=== PATIENT | male | born 1940 | race Asian ===

== ENCOUNTER 2025-06-07 16:12 | Inpatient (IN) | payer OTHER, SELFPAY ==
[2025-06-07] VITALS (12 sets, daily range): BP systolic 117–167; BP diastolic 66–94; BMI 26.3
[2025-06-07 14:29] LABS: Hematocrit 40.9 % (39.0-52.0); Hemoglobin 13.7 g/dL (13.0-18.0); Mean Corp Hgb Conc. 33.5 g/dL (33.0-37.0); Mean Corpuscular Volume 88.9 fL (80.0-94.0); Nucleated Red Blood Cells % 0 % (-); Platelet Count 165 10^3/uL (130-400); Red Cell Dist. Width 12.3 % (11.5-14.5)
[2025-06-07 15:00] LABS: ALT (SGPT) 41 U/L (0-50); AST (SGOT) 60 U/L (17-59); Albumin 4.4 g/dl (3.5-5.0); Alkaline Phosphatase 35 U/L (38-126); Blood Urea Nitrogen 17 mg/dl (9-20); Calcium 9.6 mg/dl (8.4-10.2); Carbon Dioxide 26 mmol/L (22-30); Chloride 102 mmol/L (98-107); Glucose 184 mg/dl (70-99); Potassium 4.0 mmol/L (3.5-5.1); Sodium 137 mmol/L (135-145); Total Protein 7.3 g/dl (6.3-8.2); eGFR > 60.00
[2025-06-07 15:07] LABS: Troponin I 1.450 ng/ml
--- NOTE | 2025-06-07 15:22 | ED.GENMED ---
History of Present Illness
General
Chief Complaint: Chest Pain
Time Seen by Provider: 06/07/25 15:22
History of Present Illness
History of Present Illness:
TIME OF INITIAL EVALUATION
- 3:20 PM
REVIEW OF OLD RECORDS
- The patient has history of CAD and diabetes. The patient had colectomy in [address] Bliss.
Note:
CHIEF COMPLAINT(S)
Chest pain.
HISTORY OF PRESENT ILLNESS
The patient is an 85-year-old male presenting with chest discomfort. According to his son, the chest pain began approximately ten days ago, on a Tuesday. The patient visited the emergency department at [facility] two days after the onset of chest
pain, where blood work and an electrocardiogram (EKG) were performed and reported as normal. However, subsequent blood work today indicates a heart attack, as evidenced by significantly elevated cardiac markers, with levels reported to be 1.45. The
patient does not currently experience pain but reports discomfort. He has taken nitroglycerin tablets twice this morning, which did not provide relief from the discomfort. Although he appears comfortable he reports some minor discomfort in the
chest but describes it as 'not pain' and appears very comfortable currently.
ADDITIONAL HISTORY OBTAINED FROM SOURCES OTHER THAN THE PATIENT
Per the patients son, the patient has a history of coronary artery disease and has experienced a heart attack in the past. He sees a network consultant, Dr. Vences in [facility]. The patient resides in [facility] and was originally seen there. He is
scheduled for a cardiac catheterization with Dr. Conner in [place] the following Tuesday.
CHRONIC MEDICAL CONDITIONS SIGNIFICANTLY AFFECTING CARE
The patient has coronary artery disease with a history of a previous heart attack.
MEDICATIONS
The patient is currently taking aspirin, nitroglycerin (taken twice today), Tamsulosin, and Metformin.
PHYSICAL EXAM
General: Alert, no acute distress.
Skin: Warm, dry.
Head: Normocephalic, atraumatic.
Neck: Supple, trachea midline.
Eye, Ears, Nose, Mouth, and Throat: Oral mucosa moist.
Cardiovascular: Normal peripheral perfusion, no edema. No chest wall pain.
Respiratory: Respirations are non-labored.
Gastrointestinal: Abdomen nondistended.
Back: Normal range of motion, normal alignment.
Musculoskeletal: Normal range of motion, normal strength.
Neurological: Alert and oriented to person, place, time, and situation, no focal neurological deficit observed.
Psychiatric: Cooperative, appropriate mood & affect.
PROBLEM LIST
Acute: Chest discomfort likely due to unstable angina.
Chronic: Coronary artery disease.
PLAN
- Administer a full-strength aspirin.
- Initiate nitroglycerin drip and heparin drip.
- Consult with the network consultant for further management.
- The patient will remain in the emergency department for monitoring until evaluation by a network consultant.
DIFFERENTIAL DIAGNOSIS
The Differential Diagnosis includes, in no particular order and is not limited to:
1. Acute coronary syndrome.
2. Unstable angina.
3. Myocardial infarction.
4. Gastroesophageal reflux disease.
5. Aortic dissection.
6. Pulmonary embolism.
7. Pericarditis.
8. Costochondritis.
9. Pneumonia.
10. Anxiety-related disorder affecting cardiac symptoms.
EKG
- Sinus 77, left axis deviation, septal Q waves with minimal ST elevation there is some minimal ST depression in V5 V6
LABS
- White count 11.1, hemoglobin normal. Troponin 1.45 with no old to compare
UPDATE
-SUMMARY OF ENCOUNTER
The patient, an 85-year-old male with a history of coronary artery disease, presented with chest discomfort. Despite a previous normal EKG and blood work at a different facility, todays lab results indicated elevated cardiac markers suggestive of a
myocardial infarction. Upon arrival, the patient reported ongoing minor discomfort. An EKG showed septal Q waves and minimal S waves. The patient was managed with aspirin, heparin, and nitroglycerin drips due to suspected unstable angina or
myocardial infarction.
DISPOSITION
Admit
ASSESSMENT
The patients presentation and lab results are consistent with acute coronary syndrome, specifically unstable angina or myocardial infarction, indicated by the abnormal EKG findings and elevated cardiac markers.
EMERGENCY TREATMENTS ADMINISTERED
Aspirin, heparin drip, nitroglycerin drip
MANAGEMENT OF THE PATIENTS CARE WAS DISCUSSED WITH
Cardiology team, specifically Dr. Suarez from [facility], was notified for further management.
PLAN
The patient will be admitted to the hospital for continued monitoring and management of his condition, with emphasis on cardiac care.
INDEPENDENT REVIEW OF LABS AND INTERPRETATION OF TESTS
My independent review of cardiac biomarkers indicates elevated levels consistent with a myocardial infarction. My independent interpretation of the EKG shows septal Q waves and minimal S waves, suggestive of acute coronary syndrome.
MEDICATION RECONCILIATION
1. Aspirin
2. Heparin drip
3. Nitroglycerin drip
MEDICAL DECISION MAKING
- Number and Complexity of Problems Addressed: Chronic conditions affecting care: Coronary artery disease, myocardial infarction, unstable angina
- Differential Diagnosis: Acute coronary syndrome, unstable angina, myocardial infarction, gastroesophageal reflux disease, aortic dissection, pulmonary embolism, pericarditis, costochondritis, pneumonia, anxiety-related disorder affecting cardiac
symptoms.
- Data:
- Category 1:
- My independent interpretation of the EKG shows septal Q waves and minimal S waves.
- Category 3:
- Discussion of management with Dr. Suarez, network consultant
DIAGNOSIS
- Myocardial infarction (ICD-10: I21.3)
- Unstable angina (ICD-10: I20.0)
Phy Exam
Physical Exam
Physical Exam:
See HPI
Scores
Heart Score for Chest Pain Patients
STEMI patient?: Not applicable
Course
Orders/Labs/Results
Orders:
Orders
06/07/25 14:10
ECG [Electrocardiogram (*1)] Urgent
Reason for Study: Chest Pain
EKG- Treatment ONCE
06/07/25 14:21
Complete Blood Count/With Diff Urgent
Comprehensive Metabolic Panel Urgent
Troponin I Urgent
06/07/25 15:21
Electrocardiogram (*1) Urgent
Reason for Study: Chest Pain
EKG- Treatment ONCE
06/07/25 15:25
PT/INR [Prothrombin Time] Urgent
PTT Urgent
Troponin I Urgent
06/07/25 15:40
PTT Urgent
Comment: Obtain baseline before beginning heparin infusion if not already collected
Aspirin Chewable [Low Strength Aspirin] 324 mg PO NOW STA
Heparin 4,000 units IV NOW STA
Pharmacy Request to Place See Dose Instructions PO NOW STA
Discontinue all Active Warfarin orders?: Yes
Nursing to Place Non Medication Order As Directed
Physician Order: PTT 6 hours after initial start of Heparin infusion
06/07/25 15:45
Heparin INFUSION titrate rate - CONTINUOUS Heparin 69615 Units/250 ml 25,000 units in 250 ml IV PER PROTOCOL
Weight to be used for heparin protocol in kilograms (kg):: 76.2
Protocol:: Cardiac Tx/Acute Coronary
PTT Goal Range to be used:: PTT 73 to 111 seconds
Order type:: Initial
INITIAL Infusion Dose (UNITS/KG/hr) & then follow protocol:: 12 units/kg/hr
Infusion Dose in UNITS/hr & then follow protocol (UNITS/hr):: 900
INFUSION RATE in mL/hr & then follow protocol (mL/hr):: 9
PTT less than or equal to 64 seconds:: Increase rate by 200 units/hr (+ 2 mL/hr)
PTT 64.1 to 72.9 seconds:: Increase rate by 100 units/hr (+ 1 mL/hr)
PTT 73 to 111 seconds:: Target Range. No change in rate.
PTT 111.1 to 130.9 seconds:: Decrease rate by 100 units/hr (- 1 mL/hr)
PTT 131 to 199.9 seconds:: HOLD for 1 hr. Then decrease rate by 200 units/hr (- 2 mL/hr)
PTT greater than or equal to 200 seconds:: HOLD for 2 hrs & Notify Provider. Then decrease by 200 units/hr (-
2 mL/hr)
Lab follow-up:: Each change, PTT q6h until 2 consecutive are therapeutic. Then PTT
daily.
Nitroglycerin INFUSION CONTINUOUS Nitroglycerin 100 mg/250 ml [Nitroglycerin Premix] 100 mg in 250 ml IV PER PROTOCOL
Initial dose in mcg/min, then titrate:: 5
Titrate to keep:: Chest Pain Free
Titrate by mcg/min:: 5 mcg/min, may increase by 10 mcg/min if dose > 20 mcg/min
Frequency of titrations (minutes):: every 3-5 minutes
Maximum dose in mcg/min:: 200
Begin to taper infusion when:: Remained at goal for 2hrs
Taper by mcg/min:: 5 mcg/min
Frequency of taper (minutes) if patient maintains goal:: 30
Taper to off?: Yes
If infusion off & no longer maintaining goal:: Contact Provider
06/07/25 16:[address] See Dose Instructions IV DIRECTED
Abnormal Lab Results
06/07/25
14:21
WBC 11.1 H 10^3/uL
(4.8-10.8)
RBC 4.60 L 10^6/uL
(4.70-6.10)
Abs Immat Gran (auto) 0.1 H 10^3/uL
(0-0.05)
Absolute Neuts (auto) 9.4 H 10^3/uL
(1.4-6.5)
Neutrophils % 84.9 H %
(42.2-75.2)
Lymphocytes % 10.7 L %
(20.5-51.1)
Glucose 184 H mg/dl
(70-99)
AST 60 H U/L
(17-59)
Alkaline Phosphatase 35 L U/L
(38-126)
Troponin I 1.450 H* ng/ml
06/07/25 14:21
06/07/25 14:21
Vital Signs
Initial and Last Documented VS:
Initial Vital Signs
Temp Resp BP Pulse Ox
36.8 C 16 117/66 96
06/07/25 14:10 06/07/25 14:10 06/07/25 14:10 06/07/25 14:10
Last Documented Vital Signs
Temp Resp BP Pulse Ox
36.8 C 16 117/66 96
06/07/25 14:10 06/07/25 14:10 06/07/25 14:10 06/07/25 15:24
*Pulse Oximetry
SaO2: 96
Oxygen Mode of Delivery: Room air
Patient hypoxic: no
*Critical Care Note
Total Time (30-74mins, 75-104mins- exclusive of procedures): Not Applicable
ED Attending Note
-
Portions of this chart may have been created with voice recognition software.� Occasional wrong word or��sound alike� substitutions may have occurred due to the inherent limitations of voice recognition software.
Discharge Plan
Departure
Patient Disposition: Admit
Date of Disposition: 06/07/25
Time of Disposition: 15:40
Presentation/result/management discussed w/ accepting MD/DO: Hospitalist
Discharge Problem:
Acute coronary syndrome
Prescriptions:
No Action
telmisartan-hydrochlorothiazid 40-12.5 mg Tablet
1 tab PO DAILY
metformin 500 mg Tablet
500 mg PO DAILY
isosorbide mononitrate 30 mg Tablet Extended Release 24 Hr
30 mg PO DAILY
aspirin 81 mg Tablet,Delayed Release (Dr/Ec)
81 mg PO DAILY
tamsulosin 0.4 mg Capsule
0.4 mg PO DAILY
dutasteride 0.5 mg Capsule
0.5 mg PO DAILY
rosuvastatin [Crestor] 10 mg Tablet
10 mg PO DAILY
Discharge Date and Time
Print Language: Syriac
[2025-06-07 15:48] LABS: INR 1.04; PT 13.9 Sec (11.4-14.6)
--- NOTE | 2025-06-07 15:48 | HPS.HSE ---
Family Physician
-
Family Physician:
Chief Complaint
-
Midsternal chest pain x 10 days
History of Present Illness
85-year-old male Czech speaking was due to have cardiac catheterization next week at [facility] however has been having chest pain over the past 10 days with elevated troponin in the ER. He was placed on IV heparin drip, nitro drip and
given oral aspirin. Cardiology was made aware. Patient currently complains of 2 out of 10 chest discomfort that has been on and off for the past 10 days. He did take his a.m. medications this morning per his son Renee at bedside. He denies
any radiation diaphoresis nausea, fever, chills, abdominal pain, diarrhea, urinary symptoms, shortness of breath, cough.
He has has past medical history of CAD x 2 stents 25 years ago in [facility] hypertension, hyperlipidemia, BPH, DM 2, polyps of the cecum, hepatic steatosis, renal calculi
Medical History
Past Medical History
Past Medical History: Reports Other
Additional Past Medical History:
CAD x 2 stents 25 years ago in [facility]
hypertension
hyperlipidemia
BPH
DM 2
polyps of the cecum,
hepatic steatosis
renal calculi
Past Surgical History: Reports Other
Additional Past Surgical History:
Cardiac stents x 225 years ago [facility]
Renal calculi removal
Social History
Tobacco: Non-smoker
Alcohol: Occasional
Drug: None
Personal: Single
Living: With Family
Employment: Retired
Family History
Family History: Other (No family history CAD)
Allergies / Home Medications
Allergies reflects when Allergies were last updated in [facility].
Home Medications with original date entered in [facility]
Allergy/Medication List:
Allergies
Allergy/AdvReac Type Severity Reaction Status Date / Time
No Known Allergies Allergy Verified 06/07/25 14:13
Home Medications
aspirin 81 mg tablet,delayed release 81 mg PO DAILY Blood Clot Prevention/Tx 09/26/23
dutasteride 0.5 mg capsule 0.5 mg PO DAILY Urinary Issue 09/26/23
isosorbide mononitrate 30 mg tablet,extended release 24 hr 30 mg PO DAILY Heart Disease/Condition 09/26/23
metformin 500 mg tablet 500 mg PO DAILY Diabetes 09/26/23
rosuvastatin 10 mg tablet (Crestor) 10 mg PO DAILY High Cholesterol 09/26/23
tamsulosin 0.4 mg capsule 0.4 mg PO DAILY Urinary Issue 09/26/23
telmisartan 40 mg-hydrochlorothiazide 12.5 mg tablet 1 tab PO DAILY Blood Pressure 09/26/23
ezetimibe 10 mg tablet (Zetia) 10 mg PO DAILY High Cholesterol 06/07/25
icosapent ethyl 1 gram capsule (Vascepa) 1 g PO BID High Cholesterol 06/07/25
metoprolol succinate 25 mg tablet,extended release 24 hr (Toprol XL) 25 mg PO DAILY Blood Pressure 06/07/25
Review of Systems
-
History Source: Patient and Family (Son at bedside)
A 12 point ROS was completed and negative except as noted: Yes
Constitutional: Denies Fever or Chills
EENT: Denies Sore Throat or Runny Nose
Respiratory: Denies Cough or Trouble Breathing
Cardiac: Reports Chest Pain (Discomfort 2 out of 10 midsternal); Denies Diaphoresis, Palpitations or Syncope
Abdomen/GI: Denies Abdominal Pain, Nausea, Vomiting, Diarrhea, Constipated, Bloody Stools or Black Stools
: Denies Dysuria, Frequency, Flank Pain, Incontinence, Difficulty Voiding or Urgency
Musculoskeletal: Denies Joint Pain or Edema
Skin: Denies Itching or Rash
Neurological: Denies Dizzy, Headache or Weakness
Endocrine: Reports No Symptoms
Hematologic/Lymphatic: Reports No Symptoms
Psych: Reports Calm
Physical Exam
Vital Signs
Vital Signs
Temp Resp BP Pulse Ox
98.2 F 16 117/66 96
06/07/25 14:10 06/07/25 14:10 06/07/25 14:10 06/07/25 15:24
Physical Exam
General: Conversant and Pain (2 out of 10 midsternal); No Fever or Chills
HEENT: NormoCephalic, Anicteric, Moist mucous membranes, PERRLA, Spring Conjunctivae and No Ptosis
Respiratory: Clear; No Wheezes, Rales or Rhonchi
Cardiac: S1/S2 and Regular Rhythm; No Murmur, Rub, Gallop or Peripheral Edema
Breast: Deferred by me
GI: Soft, Non Tender, Non Distended, Normal Bowel Sounds and No Hepatosplenomegaly
Rectal: Deferred by Provider
Genito-urinary: Deferred by me
Musculoskeletal: No Clubbing, No Cyanosis and No Edema
Skin: Warm and Dry; No Rash or Jaundice
Neuro: AO x 3, No Motor Deficits, Nonfocal/grossly intact, Cranial Nerves Intact and No Sensory Deficits; No Slurred Speech, Facial Droop, Tremors or Sedated
Psych: Calm
Laboratory Results
-
06/07/25 14:21
06/07/25 14:21
Laboratory Results
Total Bilirubin 1.1 mg/dl (0.2-1.3) 06/07/25 14:21
AST 60 U/L (17-59) H 06/07/25 14:21
ALT 41 U/L (0-50) 06/07/25 14:21
Alkaline Phosphatase 35 U/L (38-126) L 06/07/25 14:21
Troponin I 1.450 ng/ml H* 06/07/25 14:21
Data Reviewed
-
Lab Data: Labs Reviewed by me
Impression/Plan
-
Impression/plan:
Admit to IVU
#NSTEMI
#CAD cardiac stents x 225 years ago [facility]
Troponin 1.450
- IV heparin drip
- IV nitro
-Check lipid profile, HgbA1c
- Aspirin 325 mg now and 81 mg daily
- Consult cardiology
- Check chest x-ray
- Continue metoprolol succinate 25 mg daily with hold parameters, hold Imdur as patient is on nitro drip
- Cath today
- 2D echo
EKG 71 bpm, ST depression V5 V6
#Leukocytosis unclear
WBC 11.1
-Check chest x-ray, afebrile
#HTN
Continue metoprolol XL 25 mg daily with hold parameters
- Continue telmisartan/HCTZ 1 tab p.o. daily if okay with cardiology
#HLD
Check lipid profile
Continue Zetia 10 mg daily, Vascepa 1 g p.o. twice daily, Crestor 10 mg daily
#BPH
Continue dutasteride 0.5 mg daily
#DM 2
Hold metformin 500 mg daily
Accu-Cheks with SSI, check HgbA1c
Other PMH:
polyps of the cecum
hepatic steatosis
DVT prophylaxis
Patient on current IV heparin drip
Full code
[2025-06-07 15:49] LABS: APTT 26.5 Sec (23.4-35.0)
[2025-06-07] MEDS: LOW STRENGTH ASPIRIN 324 MG PO (15:53)
[2025-06-07] MEDS: HEPARIN 4000 UNITS IV (15:54)
[2025-06-07] MEDS: NITROGLYCERIN PREMIX 250 IV (15:57)
--- NOTE | 2025-06-07 16:03 | CON.CAR ---
Addendum entered and electronically signed by Abdirizak Suarez MD 06/07/25 17:41:
I saw and examined the patient independently.
The CLIENT APPLICATION SUPPORT ENGINEER's note was reviewed and I agree with the note with additions/changes as noted below.
Comment:
85 yo male with PMH of CAD, prior stenting, HTN, hyperlipidemia, DM admitted with chest pain. Intermittent over past 7-10 days. Currently still with chest pain. Exam with RRR, no murmurs, no edema. TnI 1.45. EKG: NSR, septal infarct.
Chest pain. NSTEMI.
-threat to life
-ASA 324mg, heparin drip, beta sanchez
-cardiac cath and echo today
Hyperlipidemia
-cont statin
Original Note:
Consultation
Consultation Request
Date/Time Consultation Requested: 06/07/2025 15:00
Date/Time Consultation Performed: 06/07/2025 15:30
Requesting Provider: Dr. Ruffin
Performing Provider: LOU Martell for Dr. Suarez
Reason for Consultation: NSTEMI
Medical History
-
Chief Complaint: Chest pain
History of Present Illness:
Dheeraj Kraus is an 85-year-old male (known to Dr. Vences, his primary refractive surgeon) with coronary artery disease (prior PCI in [facility]), hypertension, dyslipidemia, type 2 diabetes mellitus, and colon cancer (status post colectomy, no XRT/chemotherapy),
who presented to the emergency department with a chief complaint of chest pain. He saw Dr. Vences earlier this week for chest discomfort. The plan was for cardiac catheterization next week. His chest pain has been intermittent and ongoing. He is not
getting any relief. He presented to the emergency department. Initial troponin 1.450. EKG sinus rhythm, left axis, rate 77. At the time of this consultation he was reporting 2/10 anterior midsternal chest discomfort without radiation. He denies
associated symptoms of shortness of breath, diaphoresis, and nausea.
A professional translation service was offered. The patient preferred to use his son at the bedside.
Past Medical History
Past Medical History: CAD, Cancer (Colon [s/p colectomy]), HTN, Hypercholesterolemia, NIDDM and Other (BPH)
Past Surgical History: Bowel Resection and Cholecystectomy
Social History
Tobacco: Non-Smoker
Alcohol: None
Drug: None
Employment: Retired
Family History
Family History: Reviewed & Not Pertinent
Allergies / Home Medications
Allergy/AdvReac Type Severity Reaction Status Date / Time
No Known Allergies Allergy Verified 06/07/25 14:13
�Medication �Instructions �Recorded �Confirmed �Type
aspirin 81 mg tablet,delayed 81 mg PO DAILY Blood Clot 09/26/23 06/07/25 History
release Prevention/Tx
dutasteride 0.5 mg capsule 0.5 mg PO DAILY Urinary Issue 09/26/23 06/07/25 History
isosorbide mononitrate 30 mg 30 mg PO DAILY Heart 09/26/23 06/07/25 History
tablet,extended release 24 hr Disease/Condition
metformin 500 mg tablet 500 mg PO DAILY Diabetes 09/26/23 06/07/25 History
rosuvastatin 10 mg tablet (Crestor) 10 mg PO DAILY High Cholesterol 09/26/23 06/07/25 History
tamsulosin 0.4 mg capsule 0.4 mg PO DAILY Urinary Issue 09/26/23 06/07/25 History
telmisartan 40 1 tab PO DAILY Blood Pressure 09/26/23 06/07/25 History
mg-hydrochlorothiazide 12.5 mg
tablet
ezetimibe 10 mg tablet (Zetia) 10 mg PO DAILY High Cholesterol 06/07/25 06/07/25 History
icosapent ethyl 1 gram capsule 1 g PO BID High Cholesterol 06/07/25 06/07/25 History
(Vascepa)
metoprolol succinate 25 mg 25 mg PO DAILY Blood Pressure 06/07/25 06/07/25 History
tablet,extended release 24 hr
(Toprol XL)
Review of Systems
-
History Source: Patient
Constitutional: No Symptoms
EENT: No Symptoms
Respiratory: No Symptoms
Cardiac: Chest Pain
Abdomen/GI: No Symptoms
: No Symptoms
Musculoskeletal: No Symptoms
Skin: No Symptoms
Neurological: No Symptoms
Hematologic/Lymphatic: No Symptoms
Physical Exam
Vital Signs
Temp Resp BP Pulse Ox
98.2 F 16 117/66 96
06/07/25 14:10 06/07/25 14:10 06/07/25 14:10 06/07/25 15:24
Lab Results
06/07/25 14:21
06/07/25 14:21
Troponin I 1.450 ng/ml H* 06/07/25 14:21
Physical Exam
General: Well Developed, Well Nourished, No Apparent Distress and Comfortable
HEENT: Normocephalic, Anicteric and Moist Mucous Membranes
Respiratory: Clear and Non Labored Respirations
Cardiac: S1/S2 and Regular Rhythm
Breast: Deferred by me
GI: Soft, Non Tender, Non Distended and Normal Bowel Sounds
Rectal: Deferred by Provider
Genito-urinary: No Costovertebral Tender
Musculoskeletal: No Clubbing, No Cyanosis and No Edema
Skin: Warm and Dry
Neuro: AO x 3
Hematologic/Lymphatic: No Lymphadenopathy
Psych: Calm
Impression / Plan
-
I/P: 85M with coronary artery disease (prior PCI in [facility]), hypertension, dyslipidemia, type 2 diabetes mellitus, and colon cancer (status post colectomy, no XRT/chemotherapy), who presented to the emergency department with a chief complaint of
chest pain.
Primary refractive surgeon: Dr. Vences
NSTEMI
- ASA 324mg now & heparin gtt with bolus
- Prior PCI in [facility], reportedly had 2 stents at that time
- Troponin 1.450 and one hour later 2.410
- Unstable as he is still having some chest discomfort at rest, start nitroglycerin drip
- Echocardiogram
- Coronary angiography
Mixed dyslipidemia
- Goal LDL <70 with CAD
- Continue Zetia 10 mg, Vascepa, and rosuvastatin 10 mg
- Fasting lipid panel in a.m.
Hypertension
- Chronic and stable, follow
Type 2 diabetes mellitus, with hyperglycemia, HgbA1c pending, per primary service
Colon cancer status post colectomy, no XRT/chemotherapy
SUBJECTIVE:
As above.
Data Reviewed
-
EKG: Report Reviewed by me
Medical Tests (Nuc Med, Echo etc): Report Reviewed by me
Labs: Labs Reviewed by me
Old Records: Reviewed
[2025-06-07 16:04] LABS: Troponin I 2.410 ng/ml
[2025-06-07] MEDS: HEPARIN 25000 UNITS/250 ML IV (16:06)
--- NOTE | 2025-06-07 16:47 | CM ---
Pricing on Brilinta 90mg BID through the patient's [facility] is covered at a $0 copay. Brilinta is currently in stock at the patient's pharmacy
--- NOTE | 2025-06-07 16:58 | W.PN.UPDATE ---
Update Note
Progress Note Update
This is an addendum to the H&P written by Radha Burt on 06/07/2025. �Patient seen and examined independently with PAID SEARCH MANAGER.
85-year-old Indonesian speaking male past medical history of CAD s/p 2 stents 25 years ago in [place], hypertension, diabetes, BPH, presenting with chest pain for past week. Went to [facility] last week and saw Dr. Conner with plan for cath next week.
Troponin of 1.45. �EKG showed normal sinus rhythm, LVH, subtle ST depressions in leads V4 to V6.
Labs show leukocytosis.
Presentation concerning for NSTEMI. �Aspirin started, heparin drip started, nitroglycerin drip started. �Check A1c and lipid panel. �Check echocardiogram. �Cardiology consulted and plan for cath today.
[2025-06-07 17:08] LABS: ACT-LR - POC 393 Seconds (116-155)
[2025-06-07 18:33] LABS: Glucose - Point of Care 119 mg/dl (70-99)
--- NOTE | 2025-06-07 19:04 | PTCARENOTE ---
Pt with NSTEMI received post PCI done via right radial artery. Pt accompanied by his son who translated. Pt denies any discomfort. Radial band in place, no sign of bleeding or hematoma. Telemetry shows sinus rhythm. Will monitor pt as ordered.
[2025-06-07] MEDS: NOVOLOG FLEXPEN-LOW RESISTANCE SC (19:07)
--- NOTE | 2025-06-07 19:11 | ITS.CL.PN ---
Brake Operator - Procedure Note
Procedure
Procedure Note:
CARDIAC CATHETERIZATION REPORT
Date of Procedure: 06/07/2025
Referring: Dr. Eric Suarez MD, PhD
Indication: NSTEMI
PROCEDURE(S)
1. left heart catheterization
2. coronary angiography
3. IVUS of LAD
4. PCI with ERYN for acute ID to proximal to mid LAD
ACCESS: 6F right radial artery (closure: radial band)
CATHETERS
1. 6F JR4
2. 6F JL3.5
3. 6F EBU3.5 guide catheter
MODERATE SEDATION: 60 minutes of moderate sedation was utilized. An independent bilingual medical receptionist was present to assist with and help manage the patient's level of consciousness and physiologic status.
HEMODYNAMIC DATA
LV 134/20 (EDP 24) mmHg
AO 144/83 (mean 109) mmHg
CORONARY ANGIOGRAPHY
Dominance: Right
LM: Large with mild disease.
LAD: Large vessel giving rise to a small D1 and moderate caliber branching D2. There is a 100% occlusion in the proximal vessel within prior stent and and diffuse severe disease extending from the stented segment into the mid vessel. There is
diffuse severe disease throughout the branching D2. There are faint distal left to left collaterals to the apical LAD.
LCx: Large vessel giving rise to a large OM1 and moderate caliber OM2. There is diffuse ectatic mild to moderate disease.
RCA: Large vessel giving rise to a large RPDA, and a very large RPL system. There is diffuse mild disease.
PCI with ERYN to LAD
Heparin was given to achieve ACT greater than 300. The left main was intubated with an EBU3.5 guide catheter. A Runthrough wire was placed in the LAD and initial lesion preparation performed with a 2.0 mm balloon with evangelical of distal flow.
There is noted to be severe disease in the D2 as well as the LAD at the takeoff of D2. Thus, the decision was made to protect the D2 with a second Runthrough wire. Further lesion preparation was performed with a 2.5 mm semicompliant balloon followed
by unsuccessful delivery of a 3.0 x 38 mm [place] stent. Further lesion preparation was then performed with a 3.0 mm NC balloon to high pressure with full expansion. The 3.0 x 38 mm [place] drug-eluting stent was then successfully
delivered and deployed at nominal pressure followed by removal of the D2 protection wire and rewiring through stent struts. A proximally overlapping 3.0 x 12 mm [place] drug-eluting stent was delivered and deployed at 16 librado. IVUS was then
performed and demonstrated a 3.0 mm distal reference vessel diameter and 3.5 mm proximal reference vessel diameter. Post dilation was performed with a 3.0 mm NC balloon taken to 16 librado at the distal stent edge followed by 3.5 mm NC balloon taken to
18 to 20 librado throughout the remainder of the stent including 20 librado at the waist noted at the proximal vessel. Final IVUS demonstrated full stent expansion and apposition with no edge dissection. There was mild residual underexpansion in the
proximal vessel with focal MSA of 5.1 mm2. This area had already been treated with a 3.5 mm NC balloon to 20 librado for 30s, and so this result was felt to be optimal and further post-dilation was not performed. Final angiographic result was
outstanding. The wires and guide were removed and a TR band placed. The patient was loaded with 600 mg Plavix.
RADIATION: dose 1568 mGy; DAP 134 Gy*cm2; fluoroscopy time 16.8 min
CONCLUSIONS
1. Coronary artery disease as described with 100% occlusion of the proximal LAD within prior stent
2. Successful PCI with overlapping 3.0 x 38 mm and 3.0 x 12 mm [place] drug-eluting stents postdilated to 3.0 mm distally and 3.5 mm elsewhere to high-pressure.
RECOMMENDATIONS
1. DAPT with aspirin and Plavix for 1 year
2. Aggressive secondary prevention of coronary artery disease including high intensity statin for goal LDL less than 55
3. Cardiac rehab
Copy to: Dr. Jose Vences MD (precision lens technician); Dr. Edilberto Solorzano MD (PCP)
Signed: Aristides Conner MD, PhD
[2025-06-07 22:18] LABS: Glucose - Point of Care 180 mg/dl (70-99)
--- NOTE | 2025-06-08 01:28 | SUR.PHASEI ---
Received pt @ change of shift. AAOx3, VSS-- NSR on monitor. R band in place with 10 mL of air in band. Educated pt on activity restrictions with arm. Radial site has some old blood, but site is clean, dry, and intact. Pt on bedrest until 1999. Post
cath fluids running @ 114 mL/hr for 5 hrs through right arm. Pt's son bedside. Language line in room. Discussed plan of care for evening. Pt verbalizes understanding. Call arias within reach.
--- NOTE | 2025-06-08 01:29 | PTCARENOTE ---
Pt went to X-ray ~ 2029. This delayed removing the R band-- see worklist.
[2025-06-08 03:49] VITALS: BP 114/73
[2025-06-08 04:51] LABS: Hematocrit 36.9 % (39.0-52.0); Hemoglobin 12.6 g/dL (13.0-18.0); Mean Corp Hgb Conc. 34.1 g/dL (33.0-37.0); Mean Corpuscular Volume 87.4 fL (80.0-94.0); Nucleated Red Blood Cells % 0 % (-); Platelet Count 141 10^3/uL (130-400); Red Cell Dist. Width 12.2 % (11.5-14.5)
[2025-06-08 05:04] LABS: ALT (SGPT) 42 U/L (0-50); AST (SGOT) 128 U/L (17-59); Albumin 3.5 g/dl (3.5-5.0); Alkaline Phosphatase 34 U/L (38-126); Blood Urea Nitrogen 13 mg/dl (9-20); Calcium 8.6 mg/dl (8.4-10.2); Carbon Dioxide 25 mmol/L (22-30); Chloride 107 mmol/L (98-107); Estimated Creatinine Clearance 72 ml/min; Glucose 117 mg/dl (70-99); HDL Cholesterol 37 mg/dl; LDL Cholesterol, Calculated 58 mg/dl; Magnesium 2.0 mg/dl (1.6-2.3); Potassium 3.8 mmol/L (3.5-5.1); Sodium 137 mmol/L (135-145); Total Protein 6.0 g/dl (6.3-8.2); Very Low Density Lipoprotein 28 mg/dl (0-30); eGFR > 60.00
[2025-06-08 07:18] VITALS: BP 120/73
[2025-06-08 08:14] LABS: Glucose - Point of Care 132 mg/dl (70-99)
[2025-06-08] MEDS: NOVOLOG FLEXPEN-LOW RESISTANCE SC (08:36)
[2025-06-08] MEDS: TOPROL XL 25 MG PO (08:40)
[2025-06-08] MEDS: CRESTOR 20 MG PO (08:40)
[2025-06-08] MEDS: ASPIR LOW (ENTERIC COATED) 81 MG PO (08:40)
[2025-06-08] MEDS: PLAVIX 75 MG PO (08:41)
[2025-06-08] MEDS: FLOMAX 0.4 MG PO (08:41)
[2025-06-08] MEDS: ZETIA 10 MG PO (08:41)
[2025-06-08] MEDS: PROSCAR 5 MG PO (08:42)
--- NOTE | 2025-06-08 08:57 | W.PN.CD ---
Today's Communication / Plan
-
- Metoprolol 25 mg QD, ASA and Plavix
- Crestor 20 mg qHS / Zetia 10 mg QD
- Turn off Nitro gtt
- Ambulate and keep telemetry
- Likely discharge in AM
Impression / Plan
-
I/P: 85M with coronary artery disease (prior PCI in [facility]), hypertension, dyslipidemia, type 2 diabetes mellitus, and colon cancer (status post colectomy, no XRT/chemotherapy), who presented to the emergency department with a chief complaint of
chest pain.
Primary smelter operator: Dr. Vences
NSTEMI
- ASA 324mg now & heparin gtt with bolus
- Prior PCI in [facility], reportedly had 2 stents at that time
- Troponin 1.450 and one hour later 2.410
- Cardiac cath - 06/07
LM: Large with mild disease.
LAD: Large vessel giving rise to a small D1 and moderate caliber branching D2. There is a 100% occlusion in the proximal vessel within prior stent and and diffuse severe disease extending from the stented segment into the mid vessel. There is
diffuse severe disease throughout the branching D2. There are faint distal left to left collaterals to the apical LAD.
LCx: Large vessel giving rise to a large OM1 and moderate caliber OM2. There is diffuse ectatic mild to moderate disease.
RCA: Large vessel giving rise to a large RPDA, and a very large RPL system. There is diffuse mild disease.
- Coronary artery disease with 100% occlusion of the proximal LAD within prior stent
- Successful PCI with overlapping 3.0 x 38 mm and 3.0 x 12 mm [place] drug-eluting stents postdilated to 3.0 mm distally and 3.5 mm elsewhere to high-pressure.
- DAPT with aspirin and Plavix for 1 year
- ECHO 06/07/25:
- Normal left ventricular systolic function. Left ventricular ejection fraction is 50-55%. Apical septal hypokinesis.
Mixed dyslipidemia
- Goal LDL <70 with CAD
- Continue Zetia 10 mg, Vascepa, and rosuvastatin 10 mg
- Fasting lipid panel in a.m.
Hypertension
- Chronic and stable, follow
Type 2 diabetes mellitus, with hyperglycemia, HgbA1c pending, per primary service
Colon cancer status post colectomy, no XRT/chemotherapy
SUBJECTIVE:
Chest pain free.
DAPT started.
Physical Exam
Vital Signs/Labs
Vital Signs
Temp Pulse Resp BP Pulse Ox
98.5 F 74 18 120/74 94
06/08/25 07:16 06/08/25 08:40 06/08/25 07:16 06/08/25 08:40 06/08/25 08:48
06/07/25 06/08/25 06/09/25
06:59 06:59 06:59
Actual Weight 76.2 kg
06/08/25 03:58
06/08/25 03:57
PT 13.9 Sec (11.4-14.6) 06/07/25 15:25
INR 1.04 06/07/25 15:25
APTT Cancelled 06/07/25 15:40
Magnesium 2.0 mg/dl (1.6-2.3) 06/08/25 03:57
Triglycerides 144 mg/dl (10-149) 06/08/25 03:57
LDL Cholesterol, Calc 58 mg/dl 06/08/25 03:57
VLDL Cholesterol, Calc 28 mg/dl (0-30) 06/08/25 03:57
HDL Cholesterol 37 mg/dl 06/08/25 03:57
LAB Results
06/07/25 06/07/25
14:21 15:25
Troponin I 1.450 H* 2.410 H* D
Physical Exam
Constitutional: No acute distress and Comfortable
EENT: Anicteric and Moist mucous membranes
Cardiovascular: Rhythm & rate is regular, Pedal edema is absent and Systolic murmur absent
Respiratory: Respiratory effort normal, Wheeze Absent, Crackles Absent and Rhonchi Absent
GI: Soft, Distention absent, Non tender and Normal bowel sounds
Neuro/Psych: Alert, Oriented and AO x 3
Data Reviewed
-
Date of Service: June 08, 2025
Medical Decision Making: Reviewed Test Results, Test Interpretation and Review of Case with other Provider
EKG: Tracing Personally Visualized and interpreted
Echo: Report Reviewed by me
Labs: Labs Reviewed by me
Old Records: Reviewed
--- NOTE | 2025-06-08 09:04 | W.PN.HOSP.TC ---
Today's Communication/Plan
-
continue holding RONNIE/loop diuretics
continue holding metformin
monitor renal function
diuretics per cards
Assessment / Plan
Assessment / Plan
[facility] 06/07
1. Coronary artery disease as described with 100% occlusion of the proximal LAD within prior stent
2. Successful PCI with overlapping 3.0 x 38 mm and 3.0 x 12 mm [place] drug-eluting stents postdilated to 3.0 mm distally and 3.5 mm elsewhere to high-pressure.

1. NSTEMI
-Trop trend reviewed
- [facility] report as above with ERYN placement in proximal LAD
- to be maintained on asa/plavix for one year moving forward.
- no radial art access site issues
- cardio planning to provide diuretics
2. NIDDM
- hold metformin and maintain on ISS one more day
3. Essential HTN
- continue on Toprol xl
- Telmisartan/hctz to be held for now.
4. BPH
- continue on dutasteride and flomax
5. HLD
- maintain on crestor/ezetimibe
DVT PPX - lovenox
FUll code
Anticipated Discharge: Within 24 hours
Subjective/Interval History
-
Date of Service: June 08, 2025
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
resting comfortably in bed
denies of having any chest pain/sob/abd pain overnight
no other reported issues
Objective Data
-
Labs:
Laboratory Results
06/08/25 06/08/25
03:57 03:58
WBC 6.9
Hgb 12.6 L
Hct 36.9 L
Plt Count 141
Sodium 137
Potassium 3.8
Chloride 107
Carbon Dioxide 25
BUN 13
Creatinine 0.7
Glucose 117 H
Calcium 8.6
Total Bilirubin 1.3
AST 128 H
ALT 42
Alkaline Phosphatase 34 L
Vital Signs:
Vital Signs
Temp Pulse Resp BP Pulse Ox
98.5 F 74 18 120/74 94
06/08/25 07:16 06/08/25 08:40 06/08/25 07:16 06/08/25 08:40 06/08/25 08:48
Review of Systems
-
Respiratory: Reports No Symptoms
Cardiac: Reports No Symptoms
Abdomen/GI: Reports No Symptoms
Physical Exam
-
General: No Apparent Distress and Comfortable
HEENT: Negative Oxygen
Musculoskeletal: No Edema and Other (No right radial art access site issue)
Neuro: Awake, Alert, Oriented, No Motor Deficits and Nonfocal/Grossly Intact
Psych: Calm
[2025-06-08 11:17] VITALS: BP 122/70
[2025-06-08 11:20] LABS: Glucose - Point of Care 160 mg/dl (70-99)
[2025-06-08] MEDS: NOVOLOG FLEXPEN-LOW RESISTANCE 1 UNITS SC (11:22)
[2025-06-08 14:43] LABS: Glycohemoglobin (HgbA1c) 6.5 % (4.0-5.6)
[2025-06-08 15:25] VITALS: BP 99/64
[2025-06-08 16:59] LABS: Glucose - Point of Care 265 mg/dl (70-99)
[2025-06-08] MEDS: NOVOLOG FLEXPEN-LOW RESISTANCE 3 UNITS SC (17:27)
--- NOTE | 2025-06-08 17:45 | PTCARENOTE ---
Pt denies any discomfort, walking in halls independently without problem. Telemetry shows sinus rhythm. Right radial site intact, no sign of bleeding or hematoma.
[2025-06-08 20:19] VITALS: BP 113/65
[2025-06-08 22:09] VITALS: BP 106/66
[2025-06-08 22:13] LABS: Glucose - Point of Care 120 mg/dl (70-99)
[2025-06-09 05:34] VITALS: BP 112/73
[2025-06-09 06:02] LABS: Hematocrit 38.0 % (39.0-52.0); Hemoglobin 12.8 g/dL (13.0-18.0); Mean Corp Hgb Conc. 33.7 g/dL (33.0-37.0); Mean Corpuscular Volume 89.8 fL (80.0-94.0); Nucleated Red Blood Cells % 0 % (-); Platelet Count 147 10^3/uL (130-400); Red Cell Dist. Width 12.4 % (11.5-14.5)
--- NOTE | 2025-06-09 06:06 | PTCARENOTE ---
patient slept well overnight. denies any cp. independent in the room. removed radial dressing. site intact. + pulses. SB/SR on tele [id number]. bp stable. call arias within reach. makes needs known. golf course assistant used when needed.
[2025-06-09 06:20] LABS: ALT (SGPT) 32 U/L (0-50); AST (SGOT) 59 U/L (17-59); Albumin 3.4 g/dl (3.5-5.0); Alkaline Phosphatase 33 U/L (38-126); Blood Urea Nitrogen 19 mg/dl (9-20); Calcium 8.9 mg/dl (8.4-10.2); Carbon Dioxide 28 mmol/L (22-30); Chloride 108 mmol/L (98-107); Estimated Creatinine Clearance 63 ml/min; Glucose 127 mg/dl (70-99); Potassium 3.8 mmol/L (3.5-5.1); Sodium 137 mmol/L (135-145); Total Protein 6.0 g/dl (6.3-8.2); eGFR > 60.00
[2025-06-09 07:39] VITALS: BP 122/67
[2025-06-09 07:53] LABS: Glucose - Point of Care 132 mg/dl (70-99)
[2025-06-09] MEDS: NOVOLOG FLEXPEN-LOW RESISTANCE SC (09:26)
[2025-06-09] MEDS: PROSCAR 5 MG PO (09:27)
[2025-06-09] MEDS: TOPROL XL 25 MG PO (09:27)
[2025-06-09] MEDS: ZETIA 10 MG PO (09:27)
[2025-06-09] MEDS: FLOMAX 0.4 MG PO (09:27)
[2025-06-09] MEDS: PLAVIX 75 MG PO (09:27)
[2025-06-09] MEDS: ASPIR LOW (ENTERIC COATED) 81 MG PO (09:27)
[2025-06-09] MEDS: CRESTOR 20 MG PO (09:27)
--- NOTE | 2025-06-09 10:13 | W.PN.HOSP.TC ---
Today's Communication/Plan
-
Discharge today
Assessment / Plan
Assessment / Plan
Initial presentation and conditions present on admission:
Mr. 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
coronary artery disease (prior PCI in [facility]),
essential hypertension,
dyslipidemia,
type 2 diabetes mellitus,
colon cancer (status post colectomy, no XRT/chemotherapy),
who presented to the emergency department with a chief complaint of chest pain. He saw Dr. Vences earlier this week for chest discomfort. The plan was for cardiac catheterization next week. His chest pain had been intermittent and ongoing. He was
not getting any relief. He presented to the emergency department. Initial troponin 1.450. EKG sinus rhythm, left axis, rate 77. At the time of initial eval he was reporting 2/10 anterior midsternal chest discomfort without radiation. He denied
associated symptoms of shortness of breath, diaphoresis, and nausea. The initial assessment/recommendations from cardiology were:
NSTEMI
- ASA 324mg now & heparin gtt with bolus
- Prior PCI in [facility], reportedly had 2 stents at that time
- Troponin 1.450 and one hour later 2.410
- Unstable as he is still having some chest discomfort at rest, start nitroglycerin drip
- Echocardiogram
- Coronary angiography
Mixed dyslipidemia
- Goal LDL <70 with CAD
- Continue Zetia 10 mg, Vascepa, and rosuvastatin 10 mg
- Fasting lipid panel in a.m.
Hypertension
- Chronic and stable, follow
Type 2 diabetes mellitus, with hyperglycemia, HgbA1c pending, per primary service
Colon cancer status post colectomy, no XRT/chemotherapy
Hospital course by problem:

1. NSTEMI - new
-Trop trend reviewed - peak was 2.4
- [facility] report with ERYN placement in proximal LAD:
[facility] 06/07
1. Coronary artery disease as described with 100% occlusion of the proximal LAD within prior stent
2. Successful PCI with overlapping 3.0 x 38 mm and 3.0 x 12 mm [place] drug-eluting stents postdilated to 3.0 mm distally and 3.5 mm elsewhere to high-pressure.
- to be maintained on asa/plavix for one year moving forward.
- no radial art access site issues
- cardiology to manage diuretics as needed
2. NIDDM - stable
- held metformin and maintained on ISS
- Resume metformin on discharge
3. Essential HTN - stable
- continue on Toprol xl
- Telmisartan/hctz to be held for now.
Resume whe reviewed by outpatient provider
4. BPH - stable
- continue on dutasteride and flomax
5. HLD - stable
- maintain on crestor/ezetimibe
DVT PPX - lovenox while in hospital
Code during hospital stay: Full code
Anticipated Discharge: Today
Subjective/Interval History
-
Date of Service: June 09, 2025
No chest pain today.
Objective Data
-
Labs:
Laboratory Results
06/09/25
05:36
WBC 6.3
Hgb 12.8 L
Hct 38.0 L
Plt Count 147
Sodium 137
Potassium 3.8
Chloride 108 H
Carbon Dioxide 28
BUN 19
Creatinine 0.8
Glucose 127 H
Calcium 8.9
Total Bilirubin 1.3
AST 59
ALT 32
Alkaline Phosphatase 33 L
Vital Signs:
Vital Signs
Temp Pulse Resp BP Pulse Ox
98.5 F 59 18 122/67 96
06/09/25 07:40 06/09/25 07:39 06/09/25 07:40 06/09/25 07:39 06/09/25 07:40
I&O
06/08/25 06/09/25 06/10/25
06:59 06:59 06:59
Intake Total 120 / 120
Balance 120 / 120
Review of Systems
-
Unable to obtain full review of systems at this time due to: Other (Son was translater at bedside)
History Source: Patient
Physical Exam
-
General: Well Developed, Well Nourished, No Apparent Distress and Comfortable
HEENT: Normocephalic, Atraumatic, Nose Appears Normal and Ears Appear Normal
Respiratory: Clear to Auscultation
Cardiac: Regular Rhythm and S1/S2
GI: Soft, Nontender and Nondistended
Musculoskeletal: No Clubbing and No Cyanosis
Neuro: Awake and Alert
Psych: Calm
Data Reviewed
-
Labs: Labs Reviewed by me
--- NOTE | 2025-06-09 10:24 | W.DCSUMMARY ---
Discharge Summary
Discharge Data
Date of Admission: 06/07/25
Date of Discharge: 06/09/25
Total time spent discharging patient (in min): 60
-
Pending Results: No
Hospital Course
Initial presentation and conditions present on admission:
Mr. Dheeraj Kraus is an 85-year-old male (known to Dr. Vences, his primary knowledge management consultant) with:
coronary artery disease (prior PCI in [facility]),
essential hypertension,
dyslipidemia,
type 2 diabetes mellitus,
colon cancer (status post colectomy, no XRT/chemotherapy),
who presented to the emergency department with a chief complaint of chest pain. He saw Dr. Vences earlier this week for chest discomfort. The plan was for cardiac catheterization next week. His chest pain had been intermittent and ongoing. He was
not getting any relief. He presented to the emergency department. Initial troponin 1.450. EKG sinus rhythm, left axis, rate 77. At the time of initial eval he was reporting 2/10 anterior midsternal chest discomfort without radiation. He denied
associated symptoms of shortness of breath, diaphoresis, and nausea. The initial assessment/recommendations from cardiology were:
NSTEMI
- ASA 324mg now & heparin gtt with bolus
- Prior PCI in [facility], reportedly had 2 stents at that time
- Troponin 1.450 and one hour later 2.410
- Unstable as he is still having some chest discomfort at rest, start nitroglycerin drip
- Echocardiogram
- Coronary angiography
Mixed dyslipidemia
- Goal LDL <70 with CAD
- Continue Zetia 10 mg, Vascepa, and rosuvastatin 10 mg
- Fasting lipid panel in a.m.
Hypertension
- Chronic and stable, follow
Type 2 diabetes mellitus, with hyperglycemia, HgbA1c pending, per primary service
Colon cancer status post colectomy, no XRT/chemotherapy
Hospital course by problem:

1. NSTEMI - new
-Trop trend reviewed - peak was 2.4
- [facility] report with ERYN placement in proximal LAD:
[facility] 06/07
1. Coronary artery disease as described with 100% occlusion of the proximal LAD within prior stent
2. Successful PCI with overlapping 3.0 x 38 mm and 3.0 x 12 mm [place] drug-eluting stents postdilated to 3.0 mm distally and 3.5 mm elsewhere to high-pressure.
- to be maintained on asa/plavix for one year moving forward.
- no radial art access site issues
- cardiology to manage diuretics as needed
2. NIDDM - stable
- held metformin and maintained on ISS
- Resume metformin on discharge
3. Essential HTN - stable
- continue on Toprol xl
- Telmisartan/hctz to be held for now.
Resume whe reviewed by outpatient provider
4. BPH - stable
- continue on dutasteride and flomax
5. HLD - stable
- maintain on crestor/ezetimibe
DVT PPX - lovenox while in hospital
Code during hospital stay: Full code
Discharge Plan
-
Patient Disposition: Home (Routine Discharge)
Discharge Diagnosis/Procedures: NSTEMI
Diet: As tolerated
Activity: As tolerated
Driving Restrictions: As prior to admission
Bathing Restrictions: None
Specialty Instructions: Weigh Daily- Call MD for wt gain/loss 3 lbs overnight/5 lbs in 1 week
Referrals:
Edilberto Solorzano MD [Family Provider, Internal Medicine]
Prescriptions:
New
clopidogrel 75 mg Tablet
75 mg PO DAILY Qty: 90 3RF
Continued
metformin 500 mg Tablet
500 mg PO DAILY
aspirin 81 mg Tablet,Delayed Release (Dr/Ec)
81 mg PO DAILY
tamsulosin 0.4 mg Capsule
0.4 mg PO DAILY
dutasteride 0.5 mg Capsule
0.5 mg PO DAILY
rosuvastatin [Crestor] 10 mg Tablet
10 mg PO DAILY
metoprolol succinate [Toprol XL] 25 mg Tablet Extended Release 24 Hr
25 mg PO DAILY
ezetimibe [Zetia] 10 mg Tablet
10 mg PO DAILY
icosapent ethyl [Vascepa] 1 gram Capsule
1 g PO BID
Discontinued
telmisartan-hydrochlorothiazid 40-12.5 mg Tablet
1 tab PO DAILY
isosorbide mononitrate 30 mg Tablet Extended Release 24 Hr
30 mg PO DAILY
Discharge Orders:
Discharge Patient (As Directed); Ordered 06/09/25
Ordered By: Russell Noel
Discharge Date and Time
Print Language: English
[2025-06-09 10:55] VITALS: BP 112/67
--- NOTE | 2025-06-09 11:47 | PTCARENOTE ---
Pt seen by and Sadie. Right lateral abdo. discomfort assessed by , pt and family aware of follow up if needed. Telemetry and IV devices removed. Discharge instructions reviewed with pt and his and son, translation byu
--- NOTE | 2025-06-09 11:50 | PTCARENOTE ---
Pt seen by Domenic and Sadie. Right lateral abdo discomfort assessed by , pt will report to his own PCP if further issues. Telemetry and IV devices removed. Discharge instructions reviewed with pt and his family regarding medications
and their possible side effects, activity and driving guidelines, wound care, reporting cares and concerns and follow up appt's. [facility] Office will call pt with follow up appt. Excellent understanding verbalized. Pt escorted out via wheelchair and
discharged to home.
[2025-06-10 09:14] LABS: ACT-LR - POC > 397 Seconds (116-155)
== END 2025-06-09 11:54 | disposition home or self-care (01) | DRG 321 ==
LOC: IVU 16:12
PROVIDERS: Clinical Nurse Specialist Family Health; Student in an Organized Health Care Education/Training Program; ADMITTING PHYSICIAN Hospitalist; ATTENDING PHYSICIAN Internal Medicine; EMERGENCY PHYSICIAN Emergency Medicine; FAMILY PHYSICIAN Internal Medicine; OTHER PHYSICIAN Internal Medicine
PROC: B2111ZZ Fluoroscopy of Multiple Coronary Arteries using Low Osmolar Contrast (ICD-10-PCS; 2025-06-07)
PROC: B240ZZ3 Ultrasonography of Single Coronary Artery, Intravascular (ICD-10-PCS; 2025-06-07)
PROC: 4A023N7 Measurement of Cardiac Sampling and Pressure, Left Heart, Percutaneous Approach (ICD-10-PCS; 2025-06-07)
PROC: 027035Z Dilation of Coronary Artery, One Artery with Two Drug-eluting Intraluminal Devices, Percutaneous Approach (ICD-10-PCS; 2025-06-07)
PROC: B2151ZZ Fluoroscopy of Left Heart using Low Osmolar Contrast (ICD-10-PCS; 2025-06-07)
DX: I25.10 Atherosclerotic heart disease of native coronary artery without angina pectoris (principal); I21.4 Non-ST elevation (NSTEMI) myocardial infarction; Z95.5 Presence of coronary angioplasty implant and graft; I10 Essential (primary) hypertension; E11.9 Type 2 diabetes mellitus without complications; Z85.038 Personal history of other malignant neoplasm of large intestine; Z90.49 Acquired absence of other specified parts of digestive tract; E78.2 Mixed hyperlipidemia; D72.829 Elevated white blood cell count, unspecified; N40.0 Benign prostatic hyperplasia without lower urinary tract symptoms; Z79.84 Long term (current) use of oral hypoglycemic drugs; Z79.899 Other long term (current) drug therapy; Z86.0100 Personal history of colon polyps, unspecified; K76.0 Fatty (change of) liver, not elsewhere classified; Z87.442 Personal history of urinary calculi; Z79.82 Long term (current) use of aspirin; I25.2 Old myocardial infarction
CPT/HCPCS: 71046; 80053; 80061; 82962; 83036; 83735; 84484; 85025; 85347; 85610; 85730; 92978; 93005; 93306; 93458; 96374; 96375; 99152; 99153; 99284; C1725; C1753; C1874; C1894; C9600; Q9967

== ENCOUNTER 2025-08-09 09:37 | Emergency (ER) | payer MEDICARE, OTHER, SELFPAY ==
[2025-08-09 09:43] VITALS: BP 154/72
[2025-08-09 09:56] LABS: Hematocrit 39.2 % (39.0-52.0); Hemoglobin 13.0 g/dL (13.0-18.0); Mean Corp Hgb Conc. 33.2 g/dL (33.0-37.0); Mean Corpuscular Volume 88.1 fL (80.0-94.0); Nucleated Red Blood Cells % 0 % (-); Platelet Count 143 10^3/uL (130-400); Red Cell Dist. Width 12.4 % (11.5-14.5)
[2025-08-09 10:19] LABS: Troponin I < 0.012 ng/ml
[2025-08-09 10:33] LABS: ALT (SGPT) 24 U/L (0-50); AST (SGOT) 29 U/L (17-59); Albumin 4.1 g/dl (3.5-5.0); Alkaline Phosphatase 40 U/L (38-126); Blood Urea Nitrogen 15 mg/dl (9-20); Calcium 9.1 mg/dl (8.4-10.2); Carbon Dioxide 23 mmol/L (22-30); Chloride 108 mmol/L (98-107); Glucose 201 mg/dl (70-99); Potassium 4.0 mmol/L (3.5-5.1); Sodium 139 mmol/L (135-145); Total Protein 6.8 g/dl (6.3-8.2); eGFR > 60.00
--- NOTE | 2025-08-09 12:05 | ED.GENMED ---
History of Present Illness
General
Chief Complaint: Chest Pain
Source: patient
Exam Limitations: none
Time Seen by Provider: 08/09/25 12:03
Nursing documentation reviewed up to this point in time: agreed with
History of Present Illness
History of Present Illness:
85-year-old male with history of CAD, Prior PCI in [facility], [place], reportedly had 2 stents at that time, on clopidogrel and aspirin, HTN, HLD, NIDDM, kidney stones presents for chest pain.
Woke 5 a.m. with mid to left upper chest wall 'squeezing' pain, gradual onset and after 3 hours, gradually subsided. Has had none since.
Son at bedside states since the cardiac cath, pt has been fatigued, seems depressed, worried about his health.
Denies n/v/d/c, denies SOB, abd pain.
Pt admitted 06/06-06/09 originally scheduled for cardiac cath the following week for CP but presented to ED on 06/06 w CP Troponin 1.450 and trended up, admitted NSTEMI, cathed, proximal LAD stent placed.
Meds:
metformin 500 mg Tablet
500 mg PO DAILY
aspirin 81 mg Tablet,Delayed Release (Dr/Ec)
81 mg PO DAILY
tamsulosin 0.4 mg Capsule
0.4 mg PO DAILY
dutasteride 0.5 mg Capsule
0.5 mg PO DAILY
rosuvastatin [Crestor] 10 mg Tablet
10 mg PO DAILY
metoprolol succinate [Toprol XL] 25 mg Tablet Extended Release 24 Hr
25 mg PO DAILY
ezetimibe [Zetia] 10 mg Tablet
10 mg PO DAILY
icosapent ethyl [Vascepa] 1 gram Capsule
1 g PO BID
Past History
Past History
ED Past Medical History: CAD, Cancer (colon), HTN, Hypercholesterolemia, NIDDM, NE and Psychiatric
ED Past Surgical History: Bowel resection (colon cancer, no radiation or chemotherapy)
Review of Systems
Review of Systems
Allergies reviewed?: Yes
Other source history: family
All Other Systems: ROS reviewed and negative except as documented in HPI and ROS
Phy Exam
Physical Exam
Physical Exam:
GENERAL: No acute distress. A&Ox3.
CONSTITUTIONAL: Afebrile.
EYES: clear, conjunctivae normal
ENMT: moist mucus membranes, Pharynx nl
RESPIRATORY: Regular respirations, nonlabored, lungs clear.
CARDIOVASCULAR: Regular rate and rhythm, no murmurs, no rubs.
GI: Soft, nontender, normal BS
MUSCULOSKELETAL: Moves with ease. Well perfused.
SKIN: Warm, dry, pink
PSYCH: Normal mood and affect. Well kept, interactive and appropriate
NEUROLOGIC: Awake, alert and oriented. No focal neurological deficits
Scores
Heart Score for Chest Pain Patients
STEMI patient?: Not applicable
Course
Orders/Labs/Results
Orders:
Orders
08/09/25 09:42
Electrocardiogram (*1) Urgent
Reason for Study: Chest Pain
08/09/25 09:43
EKG- Treatment ONCE
08/09/25 09:49
Complete Blood Count/With Diff Urgent
Comprehensive Metabolic Panel Urgent
Troponin I Urgent
08/09/25 12:31
EKG- Treatment ONCE
08/09/25 12:32
Electrocardiogram (*1) Urgent
Reason for Study: Chest Pain
08/09/25 12:59
Troponin I Urgent
08/09/25 13:00
Electrocardiogram (*1) Urgent
Reason for Study: Chest Pain
Abnormal Lab Results
08/09/25
09:49
RBC 4.45 L 10^6/uL
(4.70-6.10)
Lymphocytes % 17.3 L %
(20.5-51.1)
Chloride 108 H mmol/L
(98-107)
Glucose 201 H mg/dl
(70-99)
08/09/25 09:49
08/09/25 09:49
Vital Signs
Initial and Last Documented VS:
Initial Vital Signs
Temp Pulse Resp BP Pulse Ox
97.9 F 64 16 154/72 96
08/09/25 09:43 08/09/25 09:43 08/09/25 09:43 08/09/25 09:43 08/09/25 09:43
Last Documented Vital Signs
Temp Pulse Resp BP Pulse Ox
97.9 F 52 19 142/71 95
08/09/25 09:43 08/09/25 14:00 08/09/25 14:00 08/09/25 14:00 08/09/25 14:00
MDM/Problems Addressed
Differential Diagnosis Includes:
NE, GERD
MDM/Problems Addressed:
85-year-old male with history of CAD, Prior PCI in [facility], [place], reportedly had 2 stents at that time, on clopidogrel and aspirin, HTN, HLD, NIDDM, kidney stones presents for chest pain.
Woke 5 a.m. with mid to left upper chest wall 'squeezing' pain, gradual onset and after 3 hours, gradually subsided. Has had none since.
Son at bedside states since the cardiac cath, pt has been fatigued, seems depressed, worried about his health.
Denies n/v/d/c, denies SOB, abd pain.
Pt admitted 06/06-06/09 originally scheduled for cardiac cath the following week for CP but presented to ED on 06/06 w CP Troponin 1.450 and trended up, admitted NSTEMI, cathed, proximal LAD stent placed.
10:30 AM:
CBC normal
CMP unremarkable
Troponin #1 normal
EKG NSR
1:30 p.m.
EKG #2 Sinus bradycardia HR 55, left axis deviation. HR decreased by 11 BPM
Troponin #2 WNL
Pt stable for discharge.
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
Will send rx for Protonix sent to his pharmacy
*Pulse Oximetry
SaO2: 96
Oxygen Mode of Delivery: Room air
Patient hypoxic: no
*EKG
EKG Intrepretation Date: 08/09/25
Interpretation: normal
Heart Rate: 64
Rate: normal
Rhythm: sinus
[place]: left axis deviation
Interval: normal interval
QRS Pattern: normal QRS
Ischemia: no ischemia
*Critical Care Note
Total Time (30-74mins, 75-104mins- exclusive of procedures): Not Applicable
ED Attending Note
-
Portions of this chart may have been created with voice recognition software.� Occasional wrong word or��sound alike� substitutions may have occurred due to the inherent limitations of voice recognition software.
Discharge Plan
Departure
Patient Disposition: Home (Routine Discharge)
Date of Disposition: 08/09/25
Time of Disposition: 13:44
Patient with high blood pressure during this ER visit?: No
Condition: Good
Discharge Problem:
Atypical chest pain
Instructions: Chest Pain That Is Not Caused by the Heart (DC), Acid Reflux and GERD in Adults (DC)
Prescriptions:
New
pantoprazole [Protonix] 40 mg tablet,delayed release (DR/EC)
40 mg PO DAILY Qty: 30 0RF
No Action
metformin 500 mg Tablet
500 mg PO DAILY
aspirin 81 mg Tablet,Delayed Release (Dr/Ec)
81 mg PO DAILY
tamsulosin 0.4 mg Capsule
0.4 mg PO DAILY
dutasteride 0.5 mg Capsule
0.5 mg PO DAILY
rosuvastatin [Crestor] 10 mg Tablet
10 mg PO DAILY
metoprolol succinate [Toprol XL] 25 mg Tablet Extended Release 24 Hr
25 mg PO DAILY
ezetimibe [Zetia] 10 mg Tablet
10 mg PO DAILY
icosapent ethyl [Vascepa] 1 gram Capsule
1 g PO BID
clopidogrel 75 mg Tablet
75 mg PO DAILY Qty: 90 3RF
Referrals:
Edilberto Solorzano MD [Non-Admitting Privileges, Internal Medicine] - Follow up in 1 week
UNKNOWN - PT NOT,INTERVIEWE [Family Provider]
Activity Restrictions/Additional Instructions:
As we discussed, there is nothing worrisome in your workup here today. Specifically no sign of a heart attack or any complication from your cardiac catheterization.
I sent a prescription to your pharmacy for Protonix to take to treat for possible reflux.
Take it for at least 2 weeks to see if it helps.
See your doctor in 7 to 10 days and let him know if the Protonix helps.
You may continue Tylenol for the pain since it seems to have helped today
Interventions
Interventions:
*Risk Screen - Suicide Last Done: 08/09/25 09:43
*General Assessment Last Done: 08/09/25 13:09
*Neglect/Abuse Screening Last Done: 08/09/25 09:43
*ED- Fall Risk Assessment Last Done: 08/09/25 13:09
*ED COVID-19 Vaccine History Last Done: 08/09/25 13:09
*Nursing Disposition Last Done: 08/09/25 14:33
ED- Cardiac Assessment Last Done: 08/09/25 13:33
Discharge Date and Time
Discharge Date/Time: 08/09/25 14:33
Print Language: Danish
[2025-08-09 12:23] VITALS: BP 154/78
[2025-08-09 13:00] VITALS: BP 139/65
[2025-08-09 13:31] LABS: Troponin I < 0.012 ng/ml
[2025-08-09 14:00] VITALS: BP 142/71
== END 2025-08-09 14:33 | disposition home or self-care (01) ==
LOC: EMR 09:37
PROVIDERS: Registered Nurse; EMERGENCY PHYSICIAN Emergency Medicine
DX: R07.89 Other chest pain (principal); I25.10 Atherosclerotic heart disease of native coronary artery without angina pectoris; E11.9 Type 2 diabetes mellitus without complications; E78.00 Pure hypercholesterolemia, unspecified; I10 Essential (primary) hypertension; I25.2 Old myocardial infarction; Z85.038 Personal history of other malignant neoplasm of large intestine; Z95.5 Presence of coronary angioplasty implant and graft
CPT/HCPCS: 99284; 80053; 84484; 85025; 93005